=== PATIENT | male | born 1970 | race Caucasian/White ===

== ENCOUNTER 2023-05-17 06:02 | Day surgery (SDC) | payer BC ==
[2023-05-16 09:04] VITALS: BMI 29.6
[2023-05-17] MEDS ORDERED: PROPOFOL 40 ML ONE (07:23)
[2023-05-17] MEDS ORDERED: Lidocaine 1% PF 5 ML VIAL ONE (07:23)
== END 2023-05-17 08:28 | disposition home or self-care (01) ==
LOC: CSHSDC 06:02
PROVIDERS: ATTEND Surgery
PROC: 0DBF8ZZ Excision of Right Large Intestine, Via Natural or Artificial Opening Endoscopic (ICD-10-PCS; principal; 2023-05-17)
DX: Z12.11 Encounter for screening for malignant neoplasm of colon (principal); K63.5 Polyp of colon; K64.9 Unspecified hemorrhoids; K64.8 Other hemorrhoids; I10 Essential (primary) hypertension; Z86.010 Personal history of colon polyps; Z88.1 Allergy status to other antibiotic agents; Z88.2 Allergy status to sulfonamides; Z87.891 Personal history of nicotine dependence
CPT/HCPCS: 88305; J2704